=== PATIENT | female | born 1995 | race American Indian/Alaskan Native ===

== ENCOUNTER 2018-11-03 19:17 | Emergency (ER) | payer OTHER ==
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
[2018-11-03 19:50] VITALS: BP 121/67
[2018-11-03 21:01] LABS: Bilirubin,Urine NEG (Negative); Blood,Urine NEG (Negative); Color,Urine Yellow (Yellow); Mucus,Urine 1+ /HPF; Protein,Urine <15 mg/dL mg/dL (Negative)
[2018-11-03 21:02] LABS: HCG Qualitative,Urine Negative (Negative)
--- NOTE | 2018-11-03 22:18 | Cat Scan Report ---
PROCEDURE: CT HEAD/BRAIN WO CON TECHNIQUE: CT images of the head were obtained without the use of IV contrast HISTORY: headache COMPARISONS: None available FINDINGS: No CT evidence of intracranial mass, hemorrhage, acute territorial infarction, or hydrocephalus. The intracranial arteries are symmetric in density. Calvarium is intact. There is partial opacification o f the right frontal and bilateral ethmoid sinuses. There is a small amount of fluid in the right mast oid. IMPRESSION: No CT evidence of acute abnormality. This document is electronically signed by Susi Smith MD., November 03 2018 10:16:46 PM ET
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
== END 2018-11-04 02:25 | disposition home or self-care (01) ==
LOC: ED 19:17
DX: S16.1XXA Strain of muscle, fascia and tendon at neck level, initial encounter (principal); J01.00 Acute maxillary sinusitis, unspecified; V49.59XA Passenger injured in collision with other motor vehicles in traffic accident, initial encounter; Y93.89 Activity, other specified; Y92.488 Other paved roadways as the place of occurrence of the external cause; Y99.8 Other external cause status
CPT/HCPCS: 70450; 81001; 81025